=== PATIENT | female | born 1955 | race Caucasian/White ===

== ENCOUNTER 2023-02-16 08:54 | Outpatient (OUT) | payer MEDICARE, SELFPAY ==
--- NOTE | 2023-02-16 09:33 | MM_ITS ---
Patient: TIERRA HAMILTON Exam Date: 02/16/2023 : 1955 Gender:F Ordering : Non-Staff Physician Admission #: [id number] Family : LAUREN MARTINO Order #: [id number] CLICK HERE TO VIEW EXAM RADIOLOGY REPORT PROCEDURE: MM TOMOSYNTHESIS SCREENING BI COMPARISON: MG MAMM SCREEN 3D ELZA CAD, 12/26/2021. INDICATIONS: Screening Calculator Name NCI Breast Cancer Risk Assessment Tool 5 Year Breast Cancer Risk 1.10% Lifetime Breast Cancer Risk 3.70% Personal Breast Cancer No Personal Ovarian Cancer No Treatments None Family Cancers Mother with pancreatic cancer at age 80. LOCATION: [facility] BREAST COMPOSITION: Almost entirely fatty. FINDINGS: DIAGNOSTIC CATEGORY 2--BENIGN FINDING. NO CHANGE FROM COMPARISON. Scattered benign-appearing calcifications are present. Scattered benign-appearing lymph nodes are present. RIGHT BREAST: No significant suspicious finding. LEFT BREAST: No significant suspicious finding. RECOMMENDATIONS: ROUTINE MAMMOGRAM AND CLINICAL EVALUATION IN 12 MONTHS. PLEASE NOTE: A NORMAL MAMMOGRAM DOES NOT EXCLUDE THE POSSIBILITY OF BREAST CANCER. A CLINICALLY SUSPICIOUS PALPABLE LUMP SHOULD BE BIOPSIED. Dictated by: Rony Shea MD on 02/16/2023 at 11:44 Approved by: Rony Shea MD on 02/16/2023 at 11:48
== END 2023-02-16 08:55 ==
LOC: MAMMO 08:59
PROVIDERS: PCP Internal Medicine
DX: Z12.31 Encounter for screening mammogram for malignant neoplasm of breast (principal); Z80.0 Family history of malignant neoplasm of digestive organs
CPT/HCPCS: 77063; 77067

== ENCOUNTER 2024-03-31 09:34 | Outpatient (OUT) | payer MEDICARE, SELFPAY ==
--- NOTE | 2024-03-31 09:42 | MM_ITS ---
Patient Name: TIERRA HAMILTON MR#: [id number] : 1955 Exam Date: 03/31/2024 Ordering Doctor: DR LAUREN MARTINO D.O. RADIOLOGY REPORT PROCEDURE: MM TOMOSYNTHESIS SCREENING BI COMPARISON: MM TOMOSYNTHESIS SCREENING BI, 02/16/2023. MG MAMM SCREEN 3D ELZA CAD, 12/26/2021. MG MAMM ELZA SCRN W CAD DIG, 01/13/2016. INDICATIONS: Screening Calculator Name NCI Breast Cancer Risk Assessment Tool 5 Year Breast Cancer Risk 1.10% Lifetime Breast Cancer Risk 3.50% Personal Breast Cancer No Personal Ovarian Cancer No Treatments None Family Cancers Mother with pancreatic cancer at age 80. LOCATION: [facility] BREAST COMPOSITION: The breasts are almost entirely fatty. FINDINGS: DIAGNOSTIC CATEGORY 1--NEGATIVE. RIGHT BREAST: No significant suspicious finding. No significant change has occurred. LEFT BREAST: No significant suspicious finding. No significant change has occurred. RECOMMENDATIONS: ROUTINE MAMMOGRAM AND CLINICAL EVALUATION IN 12 MONTHS. PLEASE NOTE: A NORMAL MAMMOGRAM DOES NOT EXCLUDE THE POSSIBILITY OF BREAST CANCER. A CLINICALLY SUSPICIOUS PALPABLE LUMP SHOULD BE BIOPSIED. Dictated by: Yosef Neumann M.D. on 03/31/2024 at 16:19 Approved by: Yosef Neumann M.D. on 03/31/2024 at 16:21
== END 2024-03-31 09:35 | disposition home or self-care (01) ==
LOC: MAMMO 09:36
PROVIDERS: PCP Internal Medicine; Visit Provider Internal Medicine
DX: Z12.31 Encounter for screening mammogram for malignant neoplasm of breast (principal); Z80.8 Family history of malignant neoplasm of other organs or systems
CPT/HCPCS: 77063; 77067

== ENCOUNTER 2025-04-06 07:58 | Outpatient (OUT) | payer MEDICARE, SELFPAY ==
--- OUTSIDE RECORDS SUMMARY | 2025-04-06 08:03 | XMS_ITS | Encounter Summary ---
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 Name Role Phone Unavailable Primary Care Provider Unavailabl e Encounter Details Date Type Department Care Team (Latest Contact Info) Description 04/01/2025 Travel Social History Tobacco Use Types Packs/Day Years Used Date Smoking Tobacco: Never Smokeless Tobacco: Never Comments Unknown Sex and Gender Information Value Date Recorded Sex Assigned at Female 01/16/2024 10:51 AM EDT Legal Sex Female 7:21 PM EDT Gender Identity Female 01/16/2024 10:51 AM EDT Sexual Orientation Straight 01/16/2024 10 :51 AM EDT documented as of this encounter Plan of Treatment Upcoming Encounters Date Type Department Care Team (Late st Contact Info) Description 04/08/2025 10:00 AM EDT Office Visit [facility] [address] [place] [address] Melissa Marquis MD [address] [place] [address] documented as of this encounter Visit Diagnoses Not on filedocumented in this encounter
--- OUTSIDE RECORDS SUMMARY | 2025-04-06 08:03 | XMS_ITS | Clinical Summary ---
Author Organization [facility] Address [address] [place] [address] Care Team Providers Care Triage Nurse Name Role Phone Unavailable Primary Care Provider Unavailabl e Allergies No known active allergies Medications empagliflozin (Jardiance) 10 MG 01/15/2022 Active azithromycin (Zithromax) 250 MG tablet TAKE 2 TABLETS BY MOUTH ON DAY 1 THEN TAKE 1 TABLET BY MOUTH DAILY DAYS 2 THRU 5 UNTIL GONE 04/23/2023 Active Azilsartan-Chlo rthalidone (Edarbyclor) 40-12.5 MG tablet 1 (one) time each day at the same time Active ezetimibe (Zetia) 10 MG tablet 01/16/2020 Active famotidine (Pepcid) 40 MG tablet Take 40 mg by mouth at bedtime 04/23/2023 Active montelukast (Singulair) 10 MG tablet Take 10 mg by mouth Daily 12/24/2023 Active pravastatin (Pravachol) 20 MG tablet 01/16/2020 Active Active Problems No known active problems Encounters Date Type Department Care Team Description 04/01/2025 Travel from Last 3 Months Family History Medical History Relation Name Comments Melanoma Neg Hx Social History Tobacco Use Types Packs/Day Years Used Date Smoking Tobacco: Never Smokeless Tobacco: Never Tobacco Cessation:Counseling Given: Not Answered Comments Unknown Sex and Gender Information Value Date Recorded Sex Assigned at Female 01/16/2024 10:51 AM EDT Legal Sex Female 7:21 PM EDT Gender Identity Female 01/16/2024 10:51 AM EDT Sexual Orientation Straight 01/16/2024 10 :51 AM EDT Last Filed Vital Signs Vital Sign Reading Time Taken Comments Blood Pressure 158/90 01/09/2018 12:00 PM EDT Pulse - - Temperature - - Respiratory Rate - - Oxygen Saturation - - Inhaled Oxygen Concentration - - Weight 103 kg (228 lb) 01/09/2018 12:00 PM EDT Height 161.3 cm (5' 3.5 ) 01/09/2018 12:00 PM ED T Body Mass Index 39.75 01/09/2018 12:00 PM EDT Plan of Treatment Upcoming Encounters Date Type Department Care Team (Late st Contact Info) Description 04/08/2025 10:00 AM EDT Office Visit [facility] [address] [place] [address] eMlissa Marquis MD [address] [place] [address] Health Maintenance Due Date Last Done Comments CT Colonography 1955 Colonoscopy 1955 Colorectal Cancer Screening 1955 FIT-DNA 1955 FIT 1955 FOBT 1955 Sigmoidoscopy 1955 Pneumococcal Vaccine: 65+ Years (1 of 1 - PCV) 004 Mammogram 01/09/2019 01/09/2018 Influenza Vaccine (#1) 2025 Procedures Procedure Name Priority Date/Time Associated Diagnosis Comments BI MAMMOGRAM SCREENING BILATERAL Routine 01/09/2018 12:00 PM EDT Encounter for screening for malignant neoplasm of vagina Encounter for screening mammogram for malignant neoplasm of breast Encounter for gynecological examination (general) (routine) without abnormal findings from Last 3 Months or Most Recently Relevant to Health Maintenance Results * Bilateral screening mammogram (01/09/2018 12:00 PM EDT) Anatomical Region Laterality Modality Breast Bilateral Mammography Narrative 01/09/2018 12:00 PM EDT PERFORMED AT [facility] LOCATION:[id number] Procedure Note CONVERSION, GENERIC / Lyubov Mcdonough, DO - 03/09/2023 PERFORMED AT [facility] LOCATION:[id number] Lyubov Mcdonough DO IMG BI PROCEDURES Final Res ult from Last 3 Months or Most Recently Relevant to Health [place] [address] MEDICARE [employer]
--- NOTE | 2025-04-06 08:07 | MM_ITS ---
Patient Name: TIERRA HAMILTON MR#: [id number] : 1955 Exam Date: 04/06/2025 Ordering Doctor: DR LAUREN MARTINO D.O. RADIOLOGY REPORT PROCEDURE: MM TOMOSYNTHESIS SCREENING BI COMPARISON: MM TOMOSYNTHESIS SCREENING BI, 03/31/2024. MM TOMOSYNTHESIS SCREENING BI, 02/16/2023. MG MAMM SCREEN 3D ELZA CAD, 12/26/2021. MG MAMM ELZA SCRN W CAD DIG, 01/13/2016. INDICATIONS: Screening Calculator Name NCI Breast Cancer Risk Assessment Tool 5 Year Breast Cancer Risk 1.10% Lifetime Breast Cancer Risk 3.30% Personal Breast Cancer No Personal Ovarian Cancer No Treatments None Family Cancers Mother with pancreatic cancer at age 80. LOCATION: [facility] BREAST COMPOSITION: There are scattered areas of fibroglandular density. FINDINGS: DIAGNOSTIC CATEGORY 1--NEGATIVE. RIGHT BREAST: No significant suspicious finding. LEFT BREAST: No significant suspicious finding. RECOMMENDATIONS: ROUTINE MAMMOGRAM AND CLINICAL EVALUATION IN 12 MONTHS. PLEASE NOTE: A NORMAL MAMMOGRAM DOES NOT EXCLUDE THE POSSIBILITY OF BREAST CANCER. A CLINICALLY SUSPICIOUS PALPABLE LUMP SHOULD BE BIOPSIED. Dictated by: Chris Landry DO on 04/06/2025 at 15:19 Approved by: Chris Landry DO on 04/06/2025 at 15:22
--- OUTSIDE RECORDS SUMMARY | 2025-04-06 08:21 | XMS_ITS | CCD ---
Author Organization [facility] Care Team Providers Care Credit Verifier Name Role Phone Curtis Chavarria Unavailable Unavailable NONE, XXXX Unavailable Unavailable GUNNER, DR AGUILAR Attending Unavailable VALZOFIA, DR AGUILAR Consulting Unavailable VALZOFIA, DR AGUILAR Primary Care Unavailable VALONE, DR AGUILAR Admitting Unavailable WEST, DR KP Rothman Consulting Unavailable ASMITA BOWLING Attending Unavailable ASMITA BOWLING Attending Unavailable Problems Problem Classification Problem Date Documented Da te Episodic/Chronic Other screening for suspected conditions (not mental disorders or infectious disease) (4 sources) Encounter for screening mammogram for malignant neoplasm of breast; Translations: [ENC SCR MAMMO MALIG NEOPLASM BREAST] Onset: 12-26-2021 Episodic Results Test Name Value Interpretation Reference Range Facil ity MG MAMM SCREEN 3D ELZA CADon 12-26-2021 MG MAMM SCREEN 3D ELZA CAD Patient: TIERRA HAMILTON Exam Date: 12/26/2021 : 1955 Gender:F Ordering : DR LAUREN MARTINO D.O. Admission #: [id number] Family : Order #: [id number] CLICK HERE TO VIEW EXAM RADIOLOGY REPORT PROCEDURE: MAMMOGRAM SCREENING 3D BILATERAL CAD COMPARISON: MG MAMM SCREEN 3D ELZA CAD, 11/17/2020. INDICATIONS: Screening mammography Calculator Name NCI Breast Cancer Risk Assessment Tool 5 Year Breast Cancer Risk Not Reported. Lifetime Breast Cancer Risk Not Reported. Personal Breast Cancer No Personal Ovarian Cancer No Treatments None Family Cancers None LOCATION: [facility] BREAST COMPOSITION: Almost entirely fatty. FINDINGS: DIAGNOSTIC CATEGORY 1--NEGATIVE. NO CHANGE FROM COMPARISON ASSESSMENT. Scattered benign-appearing calcifications are present. Scattered benign-appearing lymph nodes are present. RIGHT BREAST: No significant suspicious finding. LEFT BREAST: No significant suspicious finding. RECOMMENDATIONS: ROUTINE MAMMOGRAM AND CLINICAL EVALUATION IN 12 MONTHS. PLEASE NOTE: A NORMAL MAMMOGRAM DOES NOT EXCLUDE THE POSSIBILITY OF BREAST CANCER. A CLINICALLY SUSPICIOUS PALPABLE LUMP SHOULD BE BIOPSIED. Dictated by: Kp Shea MD on 01/31/2022 at 15:10 Approved by: Kp Shea MD on 01/31/2022 at 15:13 Normal [facility] Encounters Encounter Date Encounter Type Care Provider Facility Start: 04-07-2024 End: 04-07-2024 ambulatory ASMITA Davis PETITTI Not Available Start: 01-22-2024 End: 01-22-2024 ambulatory ASMITA A PETITTI Not Available Start: 12-26-2021 End: 12-27-[address] LAUREN MARTINO Facility:[facility] Start: 07-18-2017 End: 07-19-2017 Ambulatory Curtis Chavarria Facility:[id number] Payers Date Payer Category Payer Unknown [id number] 1960 Medicare [id number] 1960 Unknown [id number] 1955 Unknown [id number] 1955 Unknown [id number] [id number] 1955 Unknown [id number] Summary Purpose Family History No Family History Records FoundNo Family History Records FoundNo Family History Records Found Advance Directives No Advanced Directives Records FoundNo Advanced Directives Records FoundNo Advanced Directives Records Found Additional Source Comments INFORMATION SOURCE (unrecogn ized section and content) DATE CREATED AUTHOR 02/26/2018 [facility] DATE CREATED AUTHOR AUTHOR'S ORGANIZ ATION 02/02/2022 [facility] DATE CREATED AUTHOR AUTHOR'S ORGANIZ ATION 04/08/2024 [facility] EPIC FOR RECORDS PERTAINING TO PATIENTS WHO ARE OR HAVE BEEN ENROLLED IN A CHEMICAL DEPENDENCY/SUBSTANCEABUSE PROGRAM, SOME INFORMATION MAY BE OMITTED. This clinical summary was aggregated from multiple sources. Caution should be exercised in using it in the provision of clinical care. This summary normalizes information from multiple sources, and as a consequence, information in this document may materially change the coding, format and clinical context of patient data. In addition, data may be omitted in some cases. CLINICAL DECISIONS SHOULD BE BASED ON THE PRIMARY CLINICAL RECORDS. [facility]. provides no warranty or guarantee of the accuracy or completeness of information in this document.
== END 2025-04-06 07:59 | disposition home or self-care (01) ==
LOC: MAMMO 08:01
PROVIDERS: PCP Internal Medicine; Visit Provider Internal Medicine
DX: Z12.31 Encounter for screening mammogram for malignant neoplasm of breast (principal); Z80.8 Family history of malignant neoplasm of other organs or systems
CPT/HCPCS: 77063; 77067